=== PATIENT | female | born 1980 | race Caucasian/White ===

== ENCOUNTER 2021-01-24 10:14 | Emergency (ER) | payer SELFPAY ==
[2021-01-24] MEDS ORDERED: DIPHtheria,PERTUSSIS(ACELL),TETANUS VACCINE/PF 0.5 ML VIAL IM ONE (10:19)
[2021-01-24] MEDS ORDERED: NEOMY 3.5 MG/BACIT 400 UNITS/POLY B 5000 UNITS/GM OINT PACKET TP ONE (10:19)
[2021-01-24] MEDS ORDERED: LIDOCAINE (1%) 10 MG/1 ML VIAL 20 ML MDV INFILTRATI ONE (10:19)
[2021-01-24 10:21] VITALS: BP 142/87
--- NOTE | 2021-01-24 10:21 | Event Note ---
ED Screening Note ED Screening Note: lac to 2 fingers l hand while working out in yard does not know last tdap This initial assessment/diagnostic orders/clinical plan/treatment(s) is/are subject to change based on patients health status, clinical progression and re- assessment by fellow clinical providers in the ED. Further treatment and workup at subsequent clinical providers discretion. Patient/guardian urged not to elope from the ED as their condition may be serious if not clinically assessed and managed. Initial orders include: hand soaking xray wound eval tdap
--- NOTE | 2021-01-24 10:51 | XRay Report ---
LEFT HAND/FINGERS 3 VIEWS INDICATION: xray 2 fingers with lac please. COMPARISON: No relevant prior imaging study available. FINDINGS: There is laceration injury at the distal tips of the left index and long fingers. No displaced distal tuft fracture is seen. No radiodense foreign bodies. IMPRESSION: 1. Laceration injuries; no underlying displaced fracture or radiodense foreign bodies. Signer Name: Giuliano Cornejo MD Signed: 01/24/2021 10:47 AM Workstation Name: [id number]
--- NOTE | 2021-01-24 10:56 | Emergency Department Report ---
ED General Adult HPI - General Chief complaint: Wound/Laceration Stated complaint: LT HAND/FINGERS INJURY Time Seen by Provider: 01/24/21 10:26 Source: patient Mode of arrival: Ambulatory Limitations: Language Barrier - History of Present Illness Initial comments: 40-year-old female patient presents with complaints of left second and third finger lacerations today. Patient states she was cutting the bushes and one of the blades swiped her fingers. She is unsure of her last tetanus vaccination. She denies any numbness/tingling or difficulty moving her fingers. Patient states the pain is mild. - Related Data Previous Rx's Medication Instructions Recorded Last Taken Type Ibuprofen [Motrin 800 MG tab] 800 mg PO Q8HR PRN #20 tablet 01/24/21 Unknown Rx Mupirocin [Bactroban 2% OINT] 1 applic TP TID 7 Days #1 tube 01/24/21 Unknown Rx Allergies Allergy/AdvReac Type Severity Reaction Status Date / Time No Known Allergies Allergy Unverified 01/24/21 10:18 ED Review of Systems ROS: Stated complaint: LT HAND/FINGERS INJURY Other details as noted in HPI Musculoskeletal: denies: arthralgia Skin: as per HPI. denies: change in color Neurological: denies: numbness, paresthesias ED Past Medical Hx - Past Medical History Previous Medical History?: No - Surgical History Past Surgical History?: No - Social History Smoking Status: Never Smoker Substance Use Type: None - Medications Home Medications: Home Medications Medication Instructions Recorded Confirmed Last Taken Type Ibuprofen [Motrin 800 MG tab] 800 mg PO Q8HR PRN #20 tablet 01/24/21 Unknown Rx Mupirocin [Bactroban 2% OINT] 1 applic TP TID 7 Days #1 tube 01/24/21 Unknown Rx ED Physical Exam - General Limitations: Language Barrier General appearance: alert, in no apparent distress - Head Head exam: Present: atraumatic, normocephalic - Eye Eye exam: Absent: scleral icterus - Neck Neck exam: Present: full ROM - Respiratory Respiratory exam: Absent: respiratory distress - Cardiovascular Cardiovascular Exam: Present: regular rate - Neurological Exam Neurological exam: Present: alert, oriented X3 - Psychiatric Psychiatric exam: Present: normal affect, normal mood - Skin Skin exam: Present: warm, dry, normal color. Absent: intact (Flap laceration noted to distal volar aspect of left middle finger with mild active bleeding; no obvious foreign bodies noted; partial nail avulsion noted to medial distal aspect of right index finger nail; no bleeding noted), rash ED Course Vital Signs 01/24/21 10:18 Temperature 98.0 F Pulse Rate 75 Respiratory 18 Rate Blood Pressure 142/87 O2 Sat by Pulse 100 Oximetry ED Medical Decision Making - Radiology Data Radiology results: report reviewed LEFT HAND/FINGERS 3 VIEWS INDICATION: xray 2 fingers with lac please. COMPARISON: No relevant prior imaging study available. FINDINGS: There is laceration injury at the distal tips of the left index and long fingers. No displaced distal tuft fracture is seen. No radiodense foreign bodies. IMPRESSION: 1. Laceration injuries; no underlying displaced fracture or radiodense foreign bodies. - Medical Decision Making 40-year-old female patient presents with complaints of left second and third finger lacerations today. Patient states she was cutting the bushes and one of the blades swiped her fingers. She is unsure of her last tetanus vaccination. She denies any numbness/tingling or difficulty moving her fingers. Patient states the pain is mild. Wounds were thoroughly irrigated with Betadine and normal saline. No sutures needed. Antibiotic ointment applied to wounds and wounds wrapped in a sterile dressing. Tetanus vaccine updated. Discussed wound care and signs and symptoms that should prompt immediate return to the emergency department in detail with patient verbalizes understanding. Patient to follow-up with her primary care doctor in 3 days for wound recheck. Prescription for Bactroban given. Critical care attestation.: If time is entered above; I have spent that time in minutes in the direct care of this critically ill patient, excluding procedure time. ED Disposition Clinical Impression: Laceration of finger Qualifiers: Encounter type: initial encounter Finger: middle finger Damage to nail status: with damage Foreign body presence: without foreign body Laterality: left Qualified Code(s): S61.313A - Laceration without foreign body of left middle finger with damage to nail, initial encounter Disposition: TO HOME OR SELFCARE Is pt being admited?: No Condition: Stable Instructions: Nonsutured Laceration Care Prescriptions: Mupirocin [Bactroban 2% OINT] 1 applic TP TID 7 Days #1 tube Ibuprofen [Motrin 800 MG tab] 800 mg PO Q8HR PRN #20 tablet PRN Reason: pain Referrals: PRIMARY CARE,MD [Primary Care Provider] - 3-5 Days Print Language: [place]
[2021-01-24] MEDS ORDERED: SODIUM CHLORIDE 0.9% IRR 500 ML BOTTLE IR ONE (11:00)
== END 2021-01-24 12:19 | disposition home or self-care (01) ==
LOC: ED 10:14
DX: S61.313A Laceration without foreign body of left middle finger with damage to nail, initial encounter (principal); Z79.899 Other long term (current) drug therapy; W26.9XXA Contact with unspecified sharp object(s), initial encounter; Y93.89 Activity, other specified; Y92.89 Other specified places as the place of occurrence of the external cause; Y99.8 Other external cause status
CPT/HCPCS: 73140; 90471; 90715; 99283; A6250